=== PATIENT | male | born 1960 | race Caucasian/White ===

== ENCOUNTER 2023-01-27 06:02 | Day surgery (SDC) | payer OTHER, SELFPAY ==
[2023-01-27] VITALS (21 sets, daily range): BP systolic 104–146; BP diastolic 62–93; PULSE 38–71; RESP 10–20; TEMP 36.1–36.6; O2SAT 94–100; BMI 29.9
[2023-01-27] MEDS: OXYCODONE (CR) 10 MG TAB.ER.12H PO (06:15)
[2023-01-27] MEDS: CELECOXIB 200 MG CAPSULE PO (06:15)
[2023-01-27] MEDS: ACETAMINOPHEN 500 MG TABLET 1000 MG PO (06:15)
[2023-01-27] MEDS: LACTATED RINGERS 1000 ML 1,000 ML 100 ML IV (06:25)
[2023-01-27] MEDS: SODIUM CHLORIDE 0.9 % (FLUSH) 10 ML SYRINGE IVF (06:25)
[2023-01-27] MEDS: MIDAZOLAM HCL 1 MG/ML inj IVP (07:00)
[2023-01-27] MEDS: fentaNYL 100 MCG/2 ML inj IVP (07:00)
--- NOTE | 2023-01-27 07:17 | SUR.PREOP ---
TIME?OUT:?0658 PT/Stephania MENSAH RN/Julianna HOUGH MDA?VERIFICATION?OF?SURGICAL?SITE,?PROCEDURE,?AND?CONSENT OBTAINED?PRIOR?TO?INVASIVE?PROCEDURE.
[2023-01-27] MEDS: TRANEXAMIC ACID 100 MG/ML INJ 1000 MG IV (07:28)
[2023-01-27] MEDS: CEFAZOLIN 2 GM INJ IVP (07:28)
--- NOTE | 2023-01-27 08:46 | CRLHL7_ITS ---
For Patients: As a result of the Cures Act, medical imaging exams and procedure reports are released immediately into your electronic medical record. You may view this report before your referring provider. If you have questions, please contact your health care provider. Indication: POST OP TKA Technique: Two views right knee Findings/Impression: Hardware from a right total knee arthroplasty is in satisfactory position. Bone alignment is normal. No sign of acute fracture. Postop changes are within normal limits. Dictated by Noé Bush MD @ 01/27/2023 10:44:31 AM (Electronically Signed)
--- NOTE | 2023-01-27 08:48 | P.ORPRC_ITS ---
Procedure Note Date of procedure: 01/27/23 Procedure: PREOPERATIVE DIAGNOSIS: Right knee osteoarthritis POSTOPERATIVE DIAGNOSIS: Right knee osteoarthritis NAME OF OPERATION: Right total knee arthroplasty SURGEON: Arnulfo Silverman MD ACCOUNT MAINTENANCE REPRESENTATIVE: MONIQUE Arrington ANESTHESIA: Spinal ESTIMATED BLOOD LOSS: 0 mL COMPLICATIONS: None SPECIMENS: None DRAINS: None PREOPERATIVE ANTIBIOTICS: Ancef 2 grams, antibiotic impregnated cement IMPLANTS: 1. J&J Attune # 8 posterior stabilized femur 2. # 8 fixed-bearing tibia 3. # 8 posterior stabilized, 12 mm fixed-bearing polyethylene 4. 41 patella INDICATIONS: The patient is a 62-year-old with a longstanding history of anais re, unrelenting right knee pain secondary to end-stage (grade IV) right knee osteoarthritis. Despite appropriate nonoperative management, including activity modification, anti-inflammatories, ifdi-mfz-kjedbke pain medication, bracing, physical therapy, and injections they continue to have pain and disability. Operative intervention was offered. The risks, benefits and expected outcomes were discussed in detail. These included but were not limited to: Infection, bleeding, injury to blood vessel or nerve, venous thromboembolism. All questions were answered to their satisfaction. Use of an hardware sales assistant was necessary throughout the case for patient positioning and safety, soft tissue retraction, and closure. PROCEDURE: Spinal anesthesia was administered. The patient was placed supine on the operating table. The hardware sales assistant made sure the patient was positioned appropriately. The lower extremity was prepped and draped in the usual sterile fashion. The limb was exsanguinated with the Andrew bandage. The pneumatic tourniquet was inflated to 300 mmHg. A standard anterior incision was made with the knee in flexion. Subcutaneous dissection was sharply taken through fascial layer #1. Full-thickness medial and lateral flaps were elevated. The hardware sales assistant retracted the soft tissues and protected them throughout the case. The vastus medialis was bluntly elevated off of the medial intermuscular septum. The medial retinaculum was divided. The patella was subluxed laterally for a subvastus approach. The infrapatellar fat pad was preserved. The menisci and cruciate ligaments were sharply d?brided. Marginal osteophytes were d?brided with the rongeur. The drill was used to penetrate the femoral canal. The canal was aspirated and irrigated with pulse lavage. The intramedullary femoral guide was placed for a 5-degree valgus cut, removing 10 mm off the distal femur. The saw was used to make the cut. Whitesides line and the trans epicondylar axis were marked. The femoral sizing guide was pinned onto the distal femur. Three degrees of external rotation nicely parallels the transepicondylar axis. Pins were placed for posterior referencing. The four-in-one cutting guide was pinned onto the distal femur. The anterior, posterior, and chamfer cuts were made. The hardware sales assistant protected the collateral ligaments. The box cutting guide was pinned. The box cuts were made. The boxed trial was placed and was an excellent fit. Drill holes for the lugs were made. Attention was then turned to the proximal tibia. The extramedullary tibial guide was placed for a neutral varus/valgus cut with 5 degrees of posterior slope, removing 1 mm based off the medial tibial surface. The hardware sales assistant protected the collateral ligaments and the neurovascular bundle. The saw was used to make the cut. There was a large, contained cyst in the central portion of the tibia posteriorly, just medial to midline. This was debrided with the curette and rongeur. Autograft bone from our cuts was used to bone graft the defect. An aggressive medial and posterior soft tissue release was done to balance the knee. Trial components were placed. The knee was nicely balanced in both flexion and extension. The trial components were removed. The tray was placed in appropriate rotation, parallel to our tibial cutting pins. It was pinned by the hardware sales assistant and the drill and the punch were used. The tray was removed. The punch was used again. We placed a bone plug in the femoral canal. Attention was then turned to the patella. [place] patellar thickness was 25 mm. The lobster claw resection guide was used with the 9.5 mm sherry. The saw was used to make the cut. Drill holes were made by the hardware sales assistant. The trial was placed and was an excellent fit. Cancellous surfaces were irrigated with pulse lavage and thoroughly dried by the hardware sales assistant. We cemented the tibial component, then the femoral component. We impacted the 12 mm polyethylene onto the tibial tray. The knee was brought into full extension. We then cemented the patellar component. Excessive cement was removed. The cement was allowed to harden. The knee was taken through a range of motion and was found to be nicely balanced in both flexion and extension. The patella tracks centrally. The hardware sales assistant did a three minute dilute Betadine solution soak. The hardware sales assistant irrigated the wound with 3 liters of normal saline via pulse lavage. The hardware sales assistant reapproximated the extensor mechanism with #1 Vicryl in an interrupted qqezkg-eo-uzeaz fashion. The hardware sales assistant then ran the extensor mechanism with a #1 PDO Stratafix. The hardware sales assistant closed the subcutaneous tissues with a 3-0 Stratafix and the skin with a running 3-0 Stratafix in a subcuticular fashion. Glue was used to seal the skin. The hardware sales assistant placed a dry dressing, BRYNN stocking, and Polar Care. Sponge and needle counts were correct x2. The patient tolerated the procedure well. There were no apparent complications. They were carefully transferred to the hospital bed and taken to the postanesthesia care unit in satisfactory condition. PLAN: The patient will be mobilized with physical therapy. Aspirin will be used for DVT prophylaxis. They will be discharged to home once medically appropriate.
--- NOTE | 2023-01-27 09:33 | W.ANESCHARGE ---
Anesthesia Charges Start Date/Time Anesthesia Start Date: 01/27/23 Anesthesia Start Time: 07:42 Stop Date/Time Anesthesia Stop Date: 01/27/23 Anesthesia Stop Time: 09:16
--- NOTE | 2023-01-27 11:17 | SUR.PHASEII ---
HR NOTED TO BE 32-37 CONSISTENTLY. PT ABLE TO RECOVER & MAINTAIN IN 40s. HOOKED TO HEART MONITOR - FREQUENT PVC NOTED. ANESTHESIA AWARE. SEE ANESTHESIA RECORD FOR MEDICATIONS GIVEN BY DR. HOUGH.
--- NOTE | 2023-01-27 14:36 | W.ANESCHARGE ---
Anesthesia Charges Start Date/Time Anesthesia Start Date: 01/27/23 Anesthesia Start Time: 07:14 Stop Date/Time Anesthesia Stop Date: 01/27/23 Anesthesia Stop Time: 09:16
--- NOTE | 2023-01-27 14:38 | P.NB_ITS ---
Nerve Block Nerve Block Time Seen by Provider: 07:05 Date Seen: 01/27/23 Type of block requested by surgeon for post-operative analgesia: adductor canal Side: right Time out performed: Yes Verification of patient name: Yes Verification of date of : Yes Site marking: site marked Name of person performing procedure: Francisco Javier Assistants, if any: Rafael Continuous monitoring Was continuous monitoring of O2 sat, B/P, hard candy batch mixer, recorded every 15 minutes?: Yes Procedure Checklist: sterile prep, needles and gloves Ultrasound guided. Images saved: Yes Medications given in 5ml increments after negative aspiration: Ropivicaine %: 0.5 mL: 20 Needle gauge: 20 Decadron (mg): 10 Precedex (mcg): 25 Patient tolerated procedure well: Yes Additional comments: Needle noted adjacent to nerve Block Charges Block Charge (with Pro Fee): Femoral Nerve Use of Ultrasound Machine for Block: Yes- US Guidance/pain block
--- NOTE | 2023-01-27 14:39 | P.NB_ITS ---
Nerve Block Nerve Block Time Seen by Provider: 07:05 Date Seen: 01/27/23 Type of block requested by surgeon for post-operative analgesia: geniculars Side: right Time out performed: Yes Verification of patient name: Yes Verification of date of : Yes Site marking: site marked Name of person performing procedure: Francisco Javier Assistants, if any: Rafael Continuous monitoring Was continuous monitoring of O2 sat, B/P, benefits consulting analyst, recorded every 15 minutes?: Yes Procedure Checklist: sterile prep, needles and gloves Medications given in 5ml increments after negative aspiration: Ropivicaine %: 0.5 mL: 9 Needle gauge: 25 Patient tolerated procedure well: Yes Block Charges Block Charge (with Pro Fee): Genicular Nerve Block Use of Ultrasound Machine for Block: No
--- NOTE | 2023-01-27 14:43 | SUR.PHASEII ---
Patient continues to have frequent PVCs. Vital signs remain stable. Patient denies any lightheadedness, dizziness, chest pain, palpitations, or SOB. Dr. Mcintyre aware and states patient may discharge.
--- NOTE | 2023-01-27 14:58 | W.ANESCHARGE ---
Anesthesia Charges Start Date/Time Anesthesia Start Date: 01/27/23 Anesthesia Start Time: 07:14 Stop Date/Time Anesthesia Stop Date: 01/27/23 Anesthesia Stop Time: 09:16
== END 2023-01-27 15:09 | disposition home or self-care (01) ==
PROVIDERS: PCP Family Medicine; Visit Provider Orthopaedic Surgery
PROC: (CPT 27447; principal; 2023-01-27 07:15)
DX: M17.11 Unilateral primary osteoarthritis, right knee (principal); G89.18 Other acute postprocedural pain
CPT/HCPCS: 27447; 01402; 64447; 64454; 73560; 76942; 97110; 97116; 97161; 97530; A9270; C1776; J0690; J1100; J2250; J2405; J2704; J2795; J3010; J7120

== ENCOUNTER 2023-02-28 15:30 | Outpatient (RCR) | payer OTHER, SELFPAY | END 2023-04-12 10:08 | disposition home or self-care (01) | PROVIDERS: PCP Orthopaedic Surgery; Visit Provider Orthopaedic Surgery | DX: M17.11 Unilateral primary osteoarthritis, right knee (principal); Z96.651 Presence of right artificial knee joint; M25.561 Pain in right knee; Z74.09 Other reduced mobility; R60.9 Edema, unspecified; Z51.89 Encounter for other specified aftercare | CPT/HCPCS: 97110; 97140; 97162; 97164 ==

== ENCOUNTER 2023-07-18 10:21 | Outpatient (CLI) | payer OTHER, SELFPAY ==
--- NOTE | 2023-07-18 12:04 | W.ANESCHARGE ---
Anesthesia Charges Start Date/Time Anesthesia Start Date: 07/18/23 Anesthesia Start Time: 11:37 Stop Date/Time Anesthesia Stop Date: 07/18/23 Anesthesia Stop Time: 12:12
--- NOTE | 2023-07-18 12:15 | W.ANESCHARGE ---
Anesthesia Charges Start Date/Time Anesthesia Start Date: 07/18/23 Anesthesia Start Time: 11:37 Stop Date/Time Anesthesia Stop Date: 07/18/23 Anesthesia Stop Time: 12:12
== END 2023-07-18 10:22 | disposition home or self-care (01) ==
LOC: OP CLINIC 10:24
PROVIDERS: PCP Family Medicine; Visit Provider Internal Medicine Gastroenterology
DX: Z12.11 Encounter for screening for malignant neoplasm of colon (principal); Z83.719 Family history of colon polyps, unspecified
CPT/HCPCS: 00811; 00812; 45378; J2704